=== PATIENT | female | born 1935 | race Caucasian/White ===

== ENCOUNTER 2018-01-06 13:58 | Outpatient (CLI) | payer MEDICARE ==
[2018-01-06 14:14] LABS: Anion Gap 18 mmol/L (10-20); BUN (Urea Nitrogen) 13 mg/dL (9.8-20.1); Calc. Creatinine Clearance 0 mL/min (70-130); Carbon Dioxide 21 mmol/L (23-31); Chloride 105 mmol/L (98-107); Estimated GFR-MDRD 70; Glucose 107 mg/dL (83-110); Sodium 140 mmol/L (136-145)
== END 2018-01-06 13:59 | disposition home or self-care (01) ==
LOC: MADLAB 13:58
PROVIDERS: ATTEND General Practice
DX: E87.6 Hypokalemia (principal)
CPT/HCPCS: 80048